=== PATIENT | male | born 1950 | race African-American/Black ===

== ENCOUNTER 2021-06-26 16:15 | Emergency (ER) | payer OTHER ==
[~2021-06-26] VITALS: Ht 180.3 cm; Wt 123.4 kg
[~2021-06-26 16:15] MED LIST: ACETAMINOPHEN325 M1 PO; ASPIRIN EC81 M1 PO; BACLOFEN 10MG T10 MG PO; CARBIDOPA-LEVO1 EAC5 PO; CARVEDILOL12.5 MG PO; COLACE100 MG PO; ERY-TAB250 MG PO; ERY-TAB333 MG PO; HYDROCHLOROTHIA25 M1 PO; IMDUR 30 MG TAB30 M1 PO; PRILOSEC 20 MG20 MG PO; SIMVASTATIN40 MG PO; TRIAMTERENE/HCT1 CA1 PO; ZOFRAN ODT4 MG PO
[2021-06-26] MEDS ORDERED: ERYTHROMYCIN E3.5 G2 OPHTHALMIC (18:07)
[2021-06-26 18:17] VITALS: BP 131/88
== END 2021-06-26 18:17 | disposition home or self-care (01) ==
LOC: ER 16:15
DX: S01.01XA Laceration without foreign body of scalp, initial encounter (principal); H10.9 Unspecified conjunctivitis; G20 Parkinson's disease; Z95.1 Presence of aortocoronary bypass graft; Z79.82 Long term (current) use of aspirin; Z79.891 Long term (current) use of opiate analgesic; Z79.899 Other long term (current) drug therapy; W45.8XXA Other foreign body or object entering through skin, initial encounter; Y93.89 Activity, other specified; Y92.89 Other specified places as the place of occurrence of the external cause; Y99.8 Other external cause status